=== PATIENT | female | born 2000 | race African-American/Black ===

== ENCOUNTER 2022-11-02 13:00 | Observation (INO) | payer MEDICAID, OTHER ==
[~2022-11-02] VITALS: Ht 165.1 cm; Wt 102.5 kg
[2022-11-02 16:05] LABS: HEMATOCRIT 26.6 % (36.0-48.0); HEMOGLOBIN 8.6 g/dL (12.0-16.0); MEAN CORPUSCULAR HEMOGLOBIN 26.5 pg (28.0-32.0); MEAN CORPUSCULAR VOLUME 82.2 fL (81.0-99.0); PLATELET 234 x1000/uL (130-400); RED BLOOD CELL COUNT 3.23 mill/uL (4.2-5.4)
[2022-11-02 16:22] LABS: CHLORIDE 110 mEq/L (98-107)
== END 2022-11-02 17:45 | disposition home or self-care (01) ==
LOC: ER 13:15 → EDSTATUS 13:20 → L&D 13:20 → 8 EST A/PP 14:52
PROVIDERS: ADMIT Obstetrics & Gynecology
DX: Z34.92 Encounter for supervision of normal pregnancy, unspecified, second trimester (principal); Z3A.22 22 weeks gestation of pregnancy
CPT/HCPCS: 36415; 59025; 76805; 80053; 85027; 85379; 86900; G0378